=== PATIENT | female | born 1990 | race Caucasian/White ===

== ENCOUNTER 2019-08-10 23:17 | Emergency (ER) | payer BC ==
[~2019-08-10] VITALS: Ht 162.6 cm; Wt 65.8 kg
[2019-08-10] MEDS ORDERED: LEVO1TAB56 PO (23:49)
--- NOTE | 2019-08-10 23:58 | NUR ---
Patient came from home. Chief complaint of right leg pain that is intermittent. Patient scales the pain at 3, on a scale from 0-10. patient describes the pain to be more of a tingling sensation. Patient able to ambulate on leg. Patient states that the sensation does not radiate anywhere but is intermittent.
--- NOTE | 2019-08-11 01:12 | NUR ---
Patient discharged to home in stable conditon. Written and verbal after care instructions given. Patient verbalizes understanding of instructions. AMBULATORY W/ STABLE GAIT ALL BELONGINGS W/ PT
[2019-08-11 01:33] VITALS: BP 115/79
== END 2019-08-11 01:15 | disposition home or self-care (01) ==
LOC: ER 23:24
DX: R20.2 Paresthesia of skin (principal); F41.9 Anxiety disorder, unspecified; Z88.0 Allergy status to penicillin; Z79.899 Other long term (current) drug therapy
CPT/HCPCS: A4663